=== PATIENT | female | born 1955 | race Caucasian/White ===

== ENCOUNTER 2016-09-07 09:48 | Inpatient (IN) | payer OTHER ==
[~2016-09-07] VITALS: Ht 170.2 cm; Wt 64.9 kg
[2016-09-07 09:50] VITALS: BP_SYST 136
[2016-09-07] MEDS ORDERED: ASPIRIN 81 MG TAB.CHEW PO ONE (10:00)
[2016-09-07] MEDS ORDERED: ONDANSETRON HCL 4 MG/2 ML VIAL IVP ONE (10:15)
[2016-09-07 10:16] LABS: BASOPHILS % (AUTO) 0.6 % (0.0-2.0); EOSINOPHILS % (AUTO) 0.6 % (0.0-4.0); HEMATOCRIT 38.1 % (36-48); HEMOGLOBIN 12.8 g/dL (12.0-16.0); LYMPHOCYTES # (AUTO) 1.7 K/uL (1.0-5.5); LYMPHOCYTES % (AUTO) 27.5 % (20.5-51.5); MEAN CORPUSCULAR HEMOGLOBIN 29 pg (27-31); MEAN CORPUSCULAR HGB CONC 33 % (32-36); MEAN CORPUSCULAR VOLUME 87 fL (79.0-98.0); MONOCYTES # (AUTO) 0.4 K/uL (0.0-1.0); MONOCYTES % (AUTO) 6.8 % (1.7-9.3); NEUTROPHILS # (AUTO) 3.9 K/uL (1.8-7.7); NEUTROPHILS % (AUTO) 64.5 % (40.0-70.0); PLATELET COUNT (AUTO) 256 K/uL (130-430); RED BLOOD CELL COUNT(AUTO) 4.38 MIL/uL (4.2-6.2); RED CELL DISTRIBUTION WIDTH 12.3 % (9.0-15.0)
[2016-09-07 10:26] LABS: CALCIUM 10.4 mg/dL (8.4-11.0); CREATININE 0.63 mg/dL (0.55-1.30); POTASSIUM 4.1 mmol/L (3.5-5.1)
[2016-09-07 10:31] LABS: ALBUMIN 3.8 g/dL (3.4-4.8); TOTAL BILIRUBIN 0.5 mg/dL (0.0-1.0); TOTAL PROTEIN, SERUM 7.2 g/dL (6.4-8.3)
[2016-09-07 10:32] LABS: PROTHROMBIN TIME 10.7 SECS (9.5-12.5)
[2016-09-07] MEDS ORDERED: BENA20TA2 PO (11:39)
[2016-09-07] MEDS ORDERED: ALPR1TAB2 PO (11:39)
[2016-09-07] MEDS ORDERED: ASPI-1047 PO (11:39)
[2016-09-07] MEDS ORDERED: AMLO2.5T50 PO (11:39)
[2016-09-07] MEDS ORDERED: LEVO75TA7 PO (11:39)
[2016-09-07] MEDS ORDERED: ESTR1TAB17 PO (11:39)
[2016-09-07] MEDS ORDERED: NEBI20TA2 PO (11:39)
[2016-09-07] MEDS ORDERED: TRIA1CAP53 PO (11:39)
[2016-09-07] MEDS ORDERED: ZOLP10TA6 PO (11:39)
[2016-09-07] MEDS ORDERED: CITA10TA9 PO (11:39)
[2016-09-07 11:59] VITALS: BP_SYST 141
[2016-09-07 16:15] VITALS: BP_SYST 135
[2016-09-07] MEDS ORDERED: ACETAMINOPHEN 325 MG TABLET PO PRN (17:30)
[2016-09-07] MEDS ORDERED: ONDANSETRON HCL 4 MG/2 ML VIAL ONE (17:58)
[2016-09-07] MEDS: NACL 0.9% 1,000 ML IV SCH (19:18)
[2016-09-07 19:58] VITALS: BP_SYST 144
[2016-09-07] MEDS ORDERED: TRIAMTERENE/HYDROCHLOROTHIAZID 1 CAP CAPSULE (DYAZIDE37.5/25) PO SCH (21:00)
[2016-09-07] MEDS ORDERED: NEBIVOLOL HCL 5 MG TABLET PO SCH (21:00)
[2016-09-07] MEDS: ZOLPIDEM TARTRATE 5 MG TABLET PO SCH (21:20)
[2016-09-07] MEDS: NEBIVOLOL HCL 5 MG TABLET PO SCH (21:22)
[2016-09-07] MEDS: BENAZEPRIL HCL 20 MG TABLET (LOTENSIN) PO SCH (21:23)
[2016-09-08] VITALS: BP_SYST 135
[2016-09-08] MEDS: ONDANSETRON HCL 4 MG/2 ML VIAL IVP PRN ×3 (01:23→20:39)
[2016-09-08] MEDS: MORPHINE 2 MG/ML INJ. SYRINGE IVP PRN ×3 (01:25→21:22)
[2016-09-08 04:00] VITALS: BP_SYST 133
[2016-09-08] MEDS: ALPRAZolam 0.25 MG TABLET PO PRN ×2 (04:00→20:39)
[2016-09-08] MEDS: LEVOTHYROXINE SODIUM 0.075 MG TABLET PO SCH (06:09)
[2016-09-08 08:00] VITALS: BP_SYST 143
[2016-09-08] MEDS ORDERED: NEBIVOLOL HCL 5 MG TABLET PO SCH (09:00)
[2016-09-08] MEDS: ASPIRIN 81 MG TABLET(ECOTRIN) PO SCH (10:24)
[2016-09-08] MEDS: ESTRADIOL 1 MG TABLET (ESTRACE) PO SCH (10:24)
[2016-09-08] MEDS: CITALOPRAM HYDROBROMIDE 20 MG TABLET PO SCH (10:25)
[2016-09-08] MEDS: BENAZEPRIL HCL 20 MG TABLET (LOTENSIN) PO SCH ×2 (10:25→20:38)
[2016-09-08] MEDS: amLODIPine BESYLATE 5 MG TABLET PO SCH (10:26)
[2016-09-08] MEDS: NACL 0.9% 1,000 ML IV SCH ×2 (10:36→23:04)
[2016-09-08 12:59] VITALS: BP_SYST 150
[2016-09-08] MEDS ORDERED: cloNIDine HCL 0.1 MG TABLET PO ONE (16:15)
[2016-09-08] MEDS ORDERED: cloNIDine HCL 0.1 MG TABLET ONE (16:29)
[2016-09-08 17:20] VITALS: BP_SYST 155
[2016-09-08 19:20] VITALS: BP_SYST 135
[2016-09-08] MEDS: NEBIVOLOL HCL 5 MG TABLET PO SCH (20:38)
[2016-09-08] MEDS: ZOLPIDEM TARTRATE 5 MG TABLET PO SCH (20:39)
[2016-09-09 00:47] VITALS: BP_SYST 133
[2016-09-09] MEDS: ONDANSETRON HCL 4 MG/2 ML VIAL IVP PRN (03:33)
[2016-09-09] MEDS: MORPHINE 2 MG/ML INJ. SYRINGE IVP PRN (03:34)
[2016-09-09 04:56] VITALS: BP_SYST 136
[2016-09-09] MEDS: LEVOTHYROXINE SODIUM 0.075 MG TABLET PO SCH (06:21)
[2016-09-09 07:54] VITALS: BP_SYST 131
[2016-09-09] MEDS: ASPIRIN 81 MG TABLET(ECOTRIN) PO SCH (08:58)
[2016-09-09] MEDS: BENAZEPRIL HCL 20 MG TABLET (LOTENSIN) PO SCH (08:59)
[2016-09-09] MEDS: CITALOPRAM HYDROBROMIDE 20 MG TABLET PO SCH (08:59)
[2016-09-09] MEDS: amLODIPine BESYLATE 5 MG TABLET PO SCH (09:00)
[2016-09-09] MEDS: ESTRADIOL 1 MG TABLET (ESTRACE) PO SCH (09:01)
[2016-09-09 12:26] VITALS: BP_SYST 137
[2016-09-09 15:13] VITALS: BP_SYST 123
[2016-09-09] MEDS ORDERED: ISOS20TA8 PO (15:19)
[2016-09-09] MEDS ORDERED: ISOS30TA6 PO (15:21)
[2016-09-09 16:00] VITALS: BP_SYST 123
== END 2016-09-09 16:07 | disposition home or self-care (01) | DRG 303 ==
LOC: SED 09:48 → STU 11:39
PROVIDERS: ADMIT Internal Medicine Hospice and Palliative Medicine; ATTEND Internal Medicine Hospice and Palliative Medicine
DX: I25.118 Atherosclerotic heart disease of native coronary artery with other forms of angina pectoris (principal); I10 Essential (primary) hypertension; I34.1 Nonrheumatic mitral (valve) prolapse; F41.9 Anxiety disorder, unspecified; E03.9 Hypothyroidism, unspecified; Z96.659 Presence of unspecified artificial knee joint; Z90.710 Acquired absence of both cervix and uterus; Z95.0 Presence of cardiac pacemaker; Z79.899 Other long term (current) drug therapy
CPT/HCPCS: 36415; 71010; 76700-TC; 80053; 83880; 84484; 85025; 85610-TC; 85730-TC; 87045-TC; 87046; 93005; 96374; 99285; J2270; J2405; J7030

== ENCOUNTER 2017-05-03 15:32 | Outpatient (CLI) | payer OTHER ==
[~2017-05-03 15:32] MED LIST: ALPR1TAB2 PO; AMLO2.5T50 PO; ASPI-1047 PO; BENA20TA2 PO; CITA10TA9 PO; ESTR1TAB17 PO; ISOS30TA6 PO; LEVO75TA7 PO; NEBI20TA2 PO; TRIA1CAP53 PO; ZOLP10TA6 PO
[2017-05-03 16:00] LABS: BILIRUBIN,URINE NEGATIVE (NEGATIVE); BLOOD, URINE NEGATIVE (NEGATIVE); CLARITY/URINE SL HAZY (CLEAR); COLOR,URINE YELLOW (YELLOW); GLUCOSE,URINE NEGATIVE (NEGATIVE); KETONES,URINE NEGATIVE (NEGATIVE); LEUKOCYTE ESTERASE ,URINE NEGATIVE (NEGATIVE); NITRITE, URINE NEGATIVE (NEGATIVE); PROTEIN URINE NEGATIVE (NEGATIVE); UROBILINOGEN,URINE 0.2 (0.2-1.0)
== END 2017-05-03 20:00 | disposition home or self-care (01) ==
LOC: SLB 15:32
PROVIDERS: ATTEND Internal Medicine
DX: N39.0 Urinary tract infection, site not specified (principal)
CPT/HCPCS: 81003; 87086

== ENCOUNTER 2017-11-26 10:38 | Outpatient (CLI) | payer OTHER ==
[2017-11-26 11:05] LABS: BILIRUBIN,URINE NEGATIVE (NEGATIVE); BLOOD, URINE NEGATIVE (NEGATIVE); CLARITY/URINE CLEAR (CLEAR); COLOR,URINE YELLOW (YELLOW); GLUCOSE,URINE NEGATIVE (NEGATIVE); KETONES,URINE NEGATIVE (NEGATIVE); LEUKOCYTE ESTERASE ,URINE NEGATIVE (NEGATIVE); NITRITE, URINE NEGATIVE (NEGATIVE); PH,URINE 5.5 (5.0-8.0); PROTEIN URINE NEGATIVE (NEGATIVE); UROBILINOGEN,URINE 0.2 (0.2-1.0)
== END 2017-11-26 18:12 | disposition home or self-care (01) ==
LOC: SLB 10:38
PROVIDERS: ATTEND Internal Medicine
DX: N39.0 Urinary tract infection, site not specified (principal); Z72.89 Other problems related to lifestyle
CPT/HCPCS: 81003; 87086

== ENCOUNTER 2018-05-09 15:51 | Outpatient (CLI) | payer OTHER ==
[~2018-05-09 15:51] MED LIST changes: -BENA20TA2 PO; +BENA20TA9 PO
== END 2018-05-09 19:16 | disposition home or self-care (01) ==
LOC: SRD 15:51
PROVIDERS: ATTEND Internal Medicine
DX: J18.9 Pneumonia, unspecified organism (principal); Z95.0 Presence of cardiac pacemaker
CPT/HCPCS: 71046-TC